=== PATIENT | male | born 1995 | race Caucasian/White ===

== ENCOUNTER 2017-02-12 18:16 | Emergency (ER) ==
[2017-02-12 18:33] VITALS: BP 115/75; TEMP 97.4; BMI 27.3
[2017-02-12] MEDS ORDERED: SILVADENE CREAM TP ONE (18:37)
[2017-02-12] MEDS ORDERED: SILVADENE CREAM TP STA (18:37)
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
== END 2017-02-12 19:12 | disposition home or self-care (01) ==
LOC: ED 18:16
DX: T54.2X1A Toxic effect of corrosive acids and acid-like substances, accidental (unintentional), initial encounter (principal); T23.501A Corrosion of first degree of right hand, unspecified site, initial encounter
CPT/HCPCS: 99283